=== PATIENT | female | born 1960 | race Caucasian/White ===

== ENCOUNTER 2018-02-01 19:24 | Observation (INO) ==
[2018-02-01 20:18] LABS: Basophils % 0.2 % (0.1-2.0); Eosinophils # 0.5 K/mm3 (0.0-0.4); Eosinophils % 3.6 % (0.1-12.0); Hematocrit 47.3 % (37.0-47.0); Lymphocytes % 15.3 K/mm3 (10-50); Mean Corpuscular HGB Conc 33.9 g/dL (31.8-35.4); Mean Corpuscular Hemoglobin 30.2 pg (27.0-31.2); Mean Corpuscular Volume 89.1 fl (81-99); Mean Platelet Volume 8.6 fl (7.4-10.4); Monocytes # 0.5 K/mm3 (0.1-1.0); Neutrophils # 10.2 K/mm3 (1.8-7.8); Neutrophils % 76.9 % (37.0-80.0); Platelet Count 297 K/mm3 (142-424); Red Cell Distribution Width 13.5 % (11.5-17.5); White Blood Count 13.3 K/mm3 (4.8-10.8)
[2018-02-01 20:19] LABS: Microscopic, Urine URINE MICROSCOPIC (MICROSCOPIC)
[2018-02-01 20:20] LABS: Appearance,Urine CLEAR (Clear); Bilirubin,Urine Negative (Negative); Blood, Urine TRACE-L (Negative); Color,Urine YELLOW (Yellow); Glucose,Urine (UA) Negative (Negative); Ketones,Urine Negative (Negative); Leukocyte Esterase,Urine TRACE (Negative); Protein,Urine TRACE (Negative); Specific Gravity, Urine >= 1.030 (1.005-1.030); Urobilinogen,Urine 0.2 EU/dl (0.2)
[2018-02-01 20:35] LABS: Bacteria,Urine 2+ /lpf
[2018-02-01 20:36] LABS: Mucus,Urine 1+ /lpf
[2018-02-01 20:37] LABS: Albumin Level 4.5 gm/dL (3.4-5.0); Anion Gap 18.7 mEq/L (5-15); Bilirubin,Total 0.7 mg/dL (0.2-1.0); Calcium 9.5 mg/dL (8.5-10.1); Globulin 4.5 gm/dl (1.3-3.2); Potassium 3.7 mmoL/L (3.5-5.1)
[2018-02-01 21:56] LABS: Amphetamine/Metha Screen,Urine Negative ng/mL (<1000); Barbiturates Screen,Urine Negative ng/mL (<200); Benzodiazepines Screen,Urine Negative ng/mL (<200); Cannabinoid Screen,Urine Negative ng/mL (<50); Cocaine Screen,Urine Negative ng/mL (<300); Methadone Screen,Urine Negative ng/mL (<300); Opiate Screen,Urine Negative ng/mL (<300); Phencyclidine Screen,Urine Negative ng/mL (<25)
--- NOTE | 2018-02-01 22:44 | Emergency Department Note ---
ED Disposition Clinical Impression: Enteritis Disposition: Admitted as Observation Condition on Discharge: Good Instructions: DI for Diarrhea and Traveler's Diarrhea -- Adult, DI for Diarrhea and Traveler's Diarrhea -- Child, DI for Nausea -- Adult, DI for Nausea -- Child - Critical Care Critical Care Time: No Attestation: On 02/01/18, the high probability of a clinically significant, sudden or life threatening deterioration of the following system(s) required my full and direct attention, intervention and personal management. The time I documented below is in addition to time spent performing reported procedures but includes the following listed in this critical care notation. Medical Decision Making - Medical Records Medical records reviewed: Yes: I reviewed the patient's medical records. - [place] Inquiry Pt receiving controlled substance: No Vital Signs: 02/01/18 19:46 02/01/18 21:10 Temperature 97.9 F Temperature Source Oral Pulse Rate [Brachial] 120 H 126 H Pulse Rate [Right Radial] 122 H Respiratory Rate 22 20 Blood Pressure [Right Arm] 148/85 150/99 Blood Pressure Mean [Right Arm] 106 116 Blood Pressure Source [Right Arm] Automatic Cuff Blood Pressure Position [Right Arm] Sitting Sitting 02 Sat by Pulse Oximetry 97 97 Oxygen Delivery Method Room Air - Lab Data Lab results reviewed: Yes: I reviewed the patient's lab results. Lab Results 02/01/18 20:00: WBC 13.3 H, RBC 5.30, Hgb 16.0, Hct 47.3 H, MCV 89.1, MCH 30.2, MCHC 33.9, RDW 13.5, Plt Count 297, MPV 8.6, Neut % (Auto) 76.9, Lymph % (Auto) 15.3, [place] % (Auto) 4.0, Eos % (Auto) 3.6, Baso % (Auto) 0.2, Neut # (Auto) 10.2 H, Lymph # (Auto) 2.0, [place] # (Auto) 0.5, Eos # (Auto) 0.5 H, Baso # (Auto ) 0.0 02/01/18 20:00: Sodium 139, Potassium 3.7, Chloride 106, Carbon Dioxide 18 L, Anion Gap 18.7 H, BUN 8, Creatinine 0.93, Estimated Creat Clear 99, Estimated GFR 63, Est GFR ( Amer) 76, Glucose 150 H, Calcium 9.5, Total Bilirubin 0.7, AST 64 H, ALT 75, Alkaline Phosphatase 117 H, Total Protein 9.0 H, Albumin 4.5, Globulin 4.5 H, Albumin/Globulin Ratio 1.0 L, Amylase 56, Lipase 138 02/01/18 20:00: Lactic Acid 1.4 02/01/18 20:04: Troponin I < 0.02 02/01/18 20:15: Urine Color Yellow, Urine Appearance Clear, Urine pH 6.0, Ur Specific [place] >= 1.030, Urine Protein Trace, Urine Glucose (UA) Negative, Urine Ketones Negative, Urine Blood Trace-l, Urine Nitrate Negative, Urine Bilirubin Negative, Urine Urobilinogen 0.2, Ur Leukocyte Esterase Trace, Urine RBC None, Urine WBC 5-10, Ur Squamous Epith Cells 5-10, Urine Bacteria 2+, Hyaline Casts 3-5, Coarse Granular Casts 10-20, Urine Mucus 1+ 02/01/18 20:15: Urine Opiates Screen Negative, Urine Methadone Screen Negative, Ur Barbituates Screen Negative, Ur Phencyclidine Scrn Negative, Ur Amphetamines Screen Negative, U Benzodiazepines Scrn Negative, Urine Cocaine Screen Negative , U Marijuana (THC) Screen Negative 02/01/18 21:10: POC Glucose 153 H Result diagrams: 02/01/18 20:00 02/01/18 20:00 Orders (Tests/Meds): ED MEDICATIONS Generic Name Dose Route Start Last Admin Trade Name Freq PRN Reason Stop Dose Admin Sodium Chloride 1,000 mls @ 999 mls/hr 02/01/18 22:45 02/01/18 22:42 Sod Chlor 0.9% 1000ml Bag IV 02/01/18 23:45 999 mls/hr .Q1H1M SHAILESH Administration Discontinued Medications Generic Name Dose Route Start Last Admin Trade Name Freq PRN Reason Stop Dose Admin Famotidine 20 mg 02/01/18 19:53 02/01/18 20:08 Pepcid 20mg/2ml Vial IV 02/01/18 19:54 20 mg ONCE ONE Administration Sodium Chloride 1,000 mls @ 999 mls/hr 02/01/18 20:00 02/01/18 20:08 Sod Chlor 0.9% 1000ml Bag IV 02/01/18 21:00 999 mls/hr .Q1H1M SHAILESH Administration Lorazepam 1 mg 02/01/18 21:23 02/01/18 21:25 Ativan 2mg/Ml Vial IV 02/01/18 21:24 1 mg ONCE ONE Administration Metoclopramide HCl 10 mg 02/01/18 19:53 02/01/18 20:08 Reglan 10mg/2ml Vial IVP 02/01/18 19:54 10 mg ONCE ONE Administration Ondansetron HCl 4 mg 02/01/18 19:53 02/01/18 20:08 Zofran 4mg/2ml Vial IV 02/01/18 19:54 4 mg ONCE ONE Administration ORDERS Category Date Time Status Diarrhea Panel, PCR Stat Lab 02/01/18 19:53 Ordered UA [Urinalysis and Microscopic] Stat Lab 02/01/18 21:17 Ordered Blood Culture Stat Micro 02/01/18 21:17 Ordered Urine Culture Stat Micro 02/01/18 20:15 Received 12-lead EKG Request [ECG Request by /Geri] Stat Y 02/01/18 21:09 Ordered - CT Data CT Scan: Abdomen, Pelvis Time Received: 22:[address] Reviewed: Yes: I have viewed the radiologist's interpretation Preliminary Findings: Abnormal (enteritis ) Nausea/Vomiting/Diarrhea HPI - General Chief complaint: Nausea/Vomiting/Diarrhea Stated complaint: vomiting and diarrhea Time Seen by Provider: 02/01/18 20:00 Mode of Arrival: Family Vehicle Source of Information: Patient, Relative, Medical Record Limitations: No Limitations Description of Symptoms (Recalled from ER Triage Doc. by RN): pt states she has had severe diarrhea and abd pain since one hour after she ate yesterday. pt states she ate pork chop and green beans from a restaurant. pt states that she started vomiting today right before she arrived to ed. - History of Present Illness HPI Narrative: pt with 1 day hx of vomiting and diarrhea w/o blood in stool complaint: nausea, vomiting, diarrhea, abdominal pain Onset (ago): day(s) Associated Abdominal Pain: Yes Location of pain: diffuse Severity: moderate Consistency: intermittent Context: possible food poisoning Associated symptoms: nausea/vomiting - Related Data Home Medications Medication Instructions Recorded Confirmed Atenolol [Atenolol 25mg Tab] 25 mg PO DAILY 02/01/18 02/01/18 Simvastatin 40 mg PO DAILY 02/01/18 02/01/18 raNITIdine HCl [Zantac] 150 mg PO DAILY 02/01/18 02/01/18 Allergies Allergy/AdvReac Type Severity Reaction Status Date / Time tolmetin [TOLMETIN] Allergy Unknown Verified 02/01/18 19:52 RABIES VACCINES Allergy Unknown Uncoded 06/28/17 15:01 [facility] History I have reviewed the patient's past medical history: Yes Medical History: Reports:: Cancer (cervical ca in the past) Amputation: No Fractures: No - Social History Smoking Status: Never smoker Alcohol Intake: never - Psychiatric History Expresses thoughts of harming self/others: None Suicide Plan Description: No Plan ROS Obtained: Yes All systems reviewed & no additional complaints - Constitutional Constitutional: Denies fever(s) - Eyes Eyes: Denies change in vision - ENT Ears, Nose, Mouth, and Throat: Denies sore throat - Cardiovascular Cardiovascular: Denies chest pain - Respiratory Respiratory: No cough - Gastrointestinal Gastrointestingal: Reports: abdominal pain, diarrhea, nausea, vomiting - Genitourinary Female Genitourinary: Denies hematuria - Musculoskeletal Musculoskeletal: Denies joint pain, Denies joint swelling - Integumentary/Breasts Skin/Breast: Denies rash - Neurologic Neurologic: Denies headache(s), Denies seizure-like activity Physical Exam - General General appearance: in no apparent distress - Head Head exam: normocephalic - Eye Eye exam: Present: PERRL, EOMI - ENT ENT exam: Present: mucous membranes dry - Neck Neck exam: Present: trachea midline - Respiratory Respiratory exam: Present: normal lung sounds bilaterally. Absent: respiratory distress - Cardiovascular Cardiovascular exam: Present: tachycardia, systolic murmur - Abdominal Exam Abdominal exam: Present: soft, tenderness. Absent: rebound Abdominal tenderness: Present: epigastrium, moderate - Extremities Exam Extremities exam: Absent: calf tenderness - Neurological Exam Neurological exam: Present: alert, oriented X3, CN II-XII intact - Psychiatric Psychiatric exam: Present: normal affect - Skin Skin exam: Absent: rash
--- NOTE | 2018-02-02 08:02 | Pharmacy Consult Notes ---
[facility] Pharmacy VTE Monitoring - Patient Demographics Admission date: 02/01/18 Report Date: 02/02/18 Time: 08:01 Allergies/Adverse Reactions: Patient Allergies tolmetin [TOLMETIN] Allergy (Unknown, Verified 02/02/18 07:22) Vomiting clavulanic acid [From Augmentin] Allergy (Verified 02/02/18 07:22) Vomiting rabies vaccine,purified chick-hai Allergy (Verified 02/02/18 07:22) Unknown allergy reaction Height: 1.63 m Weight: 89.018 kg Patient Problems: Current Active Problems Enteritis (Acute) - VTE Risk Labs: VTE Related Lab Results Hgb 16.0 g/dL (12.2-16.2) 02/01/18 20:00 Hct 47.3 % (37.0-47.0) H 02/01/18 20:00 Plt Count 297 K/mm3 (142-424) 02/01/18 20:00 BUN 8 mg/dL (7-18) 02/01/18 20:00 Creatinine 0.93 mg/dL (0.55-1.02) 02/01/18 20:00 Estimated Creat Clear 99 mL/min (0-300) 02/01/18 20:00 Was VTE Risk Assessment Performed: Yes VTE Score: 5 VTE Risk Level: Low Risk Clinical Trial Participant: No - Prophylaxis VTE Prophylaxis Ordered?: Yes Types of VTE Prophylaxis: TEDS Knee High
--- NOTE | 2018-02-02 08:22 | History & Physical Report ---
*Admission Date: 02/01/18 *Chief complaint: abdominal pain, nausea, vomiting, diarrhea *History of present illness: Ms. Hinkle is a 57-year-old female from [place], [place] who is here visiting her boyfriend. She states they went out to eat on Tuesday to and she had a pork chop and garlic potatoes. Almost immediately after eating, she began feeling sick. She began having diarrhea and nausea. This continued through yesterday and she vomited once. Her abdominal pain became severe, therefore she presented to the emergency room. She had a CT of the abdomen showing an enteritis. She was admitted for further evaluation and treatment. She has not had any further vomiting but continues with diarrhea and abdominal pain. [facility] History Medical History: Reports:: Cancer (cervical ca in the past), Hyperlipidemia, Hypertension, Migraine Denies:: Diabetes Mellitus Type 1, Diabetes Mellitus Type 2, MRSA Laterality Cases: Bilateral: Carpal Tunnel Release, Other Other Surgeries: Yes: Hysterectomy-Total Amputation: No Fractures: No - *Social History Educational Level: Completed College Smoking Status: Never smoker Alcohol Intake: never Occupational Status: disabled Housing: house Household Members: none - Psychiatric History Expresses thoughts of harming self/others: None Suicide Plan Description: No Plan *Family Hx:: Cancer, Diabetes, Heart Attack, Hypertension, Stroke Review of Systems - Constitutional Reports chills, Denies body ache(s), Denies fever(s) - Eyes Denies blurry vision, Denies double vision - ENT Denies nasal congestion, Denies sore throat - *Cardiovascular Denies chest pain, Denies shortness of breath - *Respiratory Denies cough, Denies shortness of breath - *Gastrointestinal Reports abdominal pain (diffuse), Reports loose stools, Reports vomiting - *Genitourinary Denies difficulty urinating, Denies painful urination - *Musculoskeletal Denies joint pain, Denies muscle weakness - *Neurologic Reports headache(s), Denies seizure-like activity, Denies dizziness Meds Home Medications Medication Instructions Recorded Confirmed Type Atenolol [Atenolol 25mg Tab] 25 mg PO DAILY 02/01/18 02/02/18 History Simvastatin 20 mg PO DAILY 02/01/18 02/02/18 History raNITIdine HCl [Zantac] 150 mg PO DAILY 02/01/18 02/02/18 History Amitriptyline HCl [Elavil 25mg 25 mg PO DAILY 02/02/18 02/02/18 History tablet] Allergies Allergy/AdvReac Type Severity Reaction Status Date / Time tolmetin [TOLMETIN] Allergy Unknown Vomiting Verified 02/02/18 07:22 clavulanic acid Allergy Vomiting Verified 02/02/18 07:22 [From Augmentin] rabies vaccine,purified Allergy Unknown Verified 02/02/18 07:22 chick-hai allergy reaction Exam Vital signs and Labs for Last 24 Hours: Temp Pulse Resp BP Pulse Ox 98.8 F 100 H 18 108/58 96 02/02/18 08:00 02/02/18 08:00 02/02/18 08:00 02/02/18 08:00 02/02/18 08:00 Laboratory Results - last 24 hr 02/01/18 20:00: WBC 13.3 H, RBC 5.30, Hgb 16.0, Hct 47.3 H, MCV 89.1, MCH 30.2, MCHC 33.9, RDW 13.5, Plt Count 297, MPV 8.6, Neut % (Auto) 76.9, Lymph % (Auto) 15.3, [place] % (Auto) 4.0, Eos % (Auto) 3.6, Baso % (Auto) 0.2, Neut # (Auto) 10.2 H, Lymph # (Auto) 2.0, [place] # (Auto) 0.5, Eos # (Auto) 0.5 H, Baso # (Auto ) 0.0 02/01/18 20:00: Sodium 139, Potassium 3.7, Chloride 106, Carbon Dioxide 18 L, Anion Gap 18.7 H, BUN 8, Creatinine 0.93, Estimated Creat Clear 99, Estimated GFR 63, Est GFR ( Amer) 76, Glucose 150 H, Calcium 9.5, Total Bilirubin 0.7, AST 64 H, ALT 75, Alkaline Phosphatase 117 H, Total Protein 9.0 H, Albumin 4.5, Globulin 4.5 H, Albumin/Globulin Ratio 1.0 L, Amylase 56, Lipase 138 02/01/18 20:00: Lactic Acid 1.4 02/01/18 20:04: Troponin I < 0.02 02/01/18 20:15: Urine Color Yellow, Urine Appearance Clear, Urine pH 6.0, Ur Specific [place] >= 1.030, Urine Protein Trace, Urine Glucose (UA) Negative, Urine Ketones Negative, Urine Blood Trace-l, Urine Nitrate Negative, Urine Bilirubin Negative, Urine Urobilinogen 0.2, Ur Leukocyte Esterase Trace, Urine RBC None, Urine WBC 5-10, Ur Squamous Epith Cells 5-10, Urine Bacteria 2+, Hyaline Casts 3-5, Coarse Granular Casts 10-20, Urine Mucus 1+ 02/01/18 20:15: Urine Opiates Screen Negative, Urine Methadone Screen Negative, Ur Barbituates Screen Negative, Ur Phencyclidine Scrn Negative, Ur Amphetamines Screen Negative, U Benzodiazepines Scrn Negative, Urine Cocaine Screen Negative , U Marijuana (THC) Screen Negative 02/01/18 21:10: POC Glucose 153 H 02/01/18 23:00: Stl Aeromonas (PCR) Not detected, Stl C. cayetanensis PCR Not detected, Stool Rotavirus (PCR) Not detected, Stl Adenov F 40/41 PCR Not detected, Stool Astrovirus (PCR) Not detected, Stool Campylobacter PCR Not detected, Stl C.difficile Tox PCR Not detected, Stool Cryptosporidium PCR Not detected, Stl E.coli Shiga Tox PCR Not detected, Stool E coli O157 PCR Not detected, Stl Enterotoxigenic E PCR Not detected, Stool EPEC (PCR) Not detected , Stool EAEC (PCR) Not detected, Stl E. histolytica PCR Not detected, Stool Giardia Lamblia PCR Not detected, Stool Salmonella PCR Not detected, Stool Sapovirus (PCR) Not detected, Stl P. shigelloides PCR Not detected, Stl Shigella /EIEC PCR Not detected, St Y.enterocolitica PCR Not detected, Stool Vibrio (PCR ) Not detected, Stl Vibrio cholerae PCR Not detected, Stl Norovirus GI/GII PCR Not detected I & O for Last 24 hours: Intake & Output 01/30/18 01/31/18 02/01/18 02/02/18 11:59 11:59 11:59 11:59 Intake Total 2484 / 2484 Balance 2484 / 2484 Weight 196 lb 4 oz Microbiology Reports for the Last 24 Hours: Microbiology 02/01/18 20:15 Urine,Clean Catch Urine Culture - Preliminary - Constitutional Comments: Does not appear to feel well - *Routine HEENT Exam Head: Present: normocephalic, atraumatic Eye: Present: EOMI, PERRL ENT: Present: mucous membranes dry - *Routine Neck Exam Present: supple, full ROM - *Routine Respiratory Exam Present: CTA bilaterally - *Routine Cardiovascular Exam Present: RRR - *Routine Abdominal Exam Present: soft, normoactive bowel sounds, tenderness (diffuse, worse in the periumbilical area) - *Routine Extremities Exam Absent: edema - *Routine Skin Exam Present: intact - *Routine Neurological Exam Present: alert, oriented X3 H&P: Result - Labs Labs: Short CBC 02/01/18 Range/Units 20:00 WBC 13.3 H (4.8-10.8) K/mm3 Hgb 16.0 (12.2-16.2) g/dL Hct 47.3 H (37.0-47.0) % Plt Count 297 (142-424) K/mm3 - Impressions Abdominal CT - Findings compatible with enteritis. Generous Liquid stool with air-fluid levels throughout the right and transverse colon compatible with enteritis, diarrhea. Slight increased fluid in small bowel with scattered mild to moderate air-fluid levels in small bowel reflecting the same. No significant wall thickening large nor small bowel. No free air no free fluid. Would also note Large amount of food distends the stomach as if the patient just ate a large meal. Assessment and Plan (1) Enteritis Current visit: Yes Status: Acute Category: Medical Code(s): K52.9 - Noninfective gastroenteritis and colitis, unspecified (2) Hypertension Current visit: Yes Status: Chronic Category: Medical Code(s): I10 - Essential (primary) hypertension (3) Hyperlipidemia Current visit: Yes Status: Chronic Category: Medical Code(s): E78.5 - Hyperlipidemia, unspecified (4) Migraines Current visit: Yes Status: Chronic Category: Medical Code(s): G43.909 - Migraine, unspecified, not intractable, without status migrainosus - Assessment and plan all Dx Assessment and Plan for all problems:: She has been started on antiemetics, pain medication, and IV fluids. We will continue these and will see if she can tolerate ice chips this morning. If so, she can try a clear liquid diet for lunch.
[2018-02-02 08:30] LABS: Basophils % 0.2 % (0.1-2.0); Eosinophils # 0.5 K/mm3 (0.0-0.4); Eosinophils % 6.5 % (0.1-12.0); Lymphocytes # 1.8 K/mm3 (0.7-4.5); Mean Corpuscular Hemoglobin 28.8 pg (27.0-31.2); Mean Corpuscular Volume 90.1 fl (81-99); Monocytes # 0.5 K/mm3 (0.1-1.0); Monocytes % 6.7 % (1.7-9.3); Neutrophils # 4.6 K/mm3 (1.8-7.8); Neutrophils % 62.6 % (37.0-80.0); Platelet Count 228 K/mm3 (142-424); Red Blood Count 4.64 M/mm3 (4.20-5.40); Red Cell Distribution Width 13.6 % (11.5-17.5)
[2018-02-02 08:35] LABS: Anion Gap 15.5 mEq/L (5-15); Potassium 3.5 mmoL/L (3.5-5.1)
[2018-02-02 08:38] LABS: Hematocrit 41.8 % (37.0-47.0); Hemoglobin 13.4 g/dL (12.2-16.2); White Blood Count 7.1 K/mm3 (4.8-10.8)
[2018-02-02 08:50] LABS: Calcium 8.1 mg/dL (8.5-10.1)
--- NOTE | 2018-02-03 08:25 | Progress Note ---
<Anabela Brumfield - Last Filed: 02/03/18 08:23> Internal Medicine - PN: Subj *Date: 02/03/18 *Time: 08:23 Interval history: Patient is feeling much better today. She is tolerating a diet, has had no further vomiting, and her diarrhea has resolved. Her abdominal pain has improved. She is anxious to go home. Exam Vital signs and Labs for Last 24 Hours: Temp Pulse Resp BP Pulse Ox 98.2 F 81 18 103/55 93 L 02/03/18 03:58 02/03/18 03:58 02/03/18 03:58 02/03/18 03:58 02/03/18 03:58 Laboratory Results - last 24 hr 02/01/18 20:15: Urine Color Yellow, Urine Appearance Clear, Urine pH 6.0, Ur Specific [place] >= 1.030, Urine Protein Trace, Urine Glucose (UA) Negative, Urine Ketones Negative, Urine Blood Trace-l, Urine Nitrate Negative, Urine Bilirubin Negative, Urine Urobilinogen 0.2, Ur Leukocyte Esterase Trace, Urine RBC None, Urine WBC 5-10, Ur Squamous Epith Cells 5-10, Urine Bacteria 2+, Hyaline Casts 3-5, Coarse Granular Casts 10-20, Urine Mucus 1+ 02/02/18 08:18: WBC 7.1 D, RBC 4.64, Hgb 13.4 D, Hct 41.8, MCV 90.1, MCH 28.8 , MCHC 32.0, RDW 13.6, Plt Count 228, MPV 8.0, Neut % (Auto) 62.6, Lymph % (Auto ) 24.0, [place] % (Auto) 6.7, Eos % (Auto) 6.5, Baso % (Auto) 0.2, Neut # (Auto) 4.6, Lymph # (Auto) 1.8, [place] # (Auto) 0.5, Eos # (Auto) 0.5 H, Baso # (Auto) 0.0 02/02/18 08:18: Sodium 144, Potassium 3.5, Chloride 112 H, Carbon Dioxide 20 L, Anion Gap 15.5 H, BUN 8, Creatinine 0.79, Estimated Creat Clear 113, Estimated GFR 76, Est GFR ( Amer) 91, Glucose 113 H D, Calcium 8.1 L D, Magnesium 1.7 I & O for Last 24 hours: Intake & Output 01/31/18 02/01/18 02/02/18 02/03/18 11:59 11:59 11:59 11:59 Intake Total 2484 / 2484 2978 / 2978 Balance 2484 / 2484 2978 / 2978 Weight 196 lb 4 oz Microbiology Reports for the Last 24 Hours: Microbiology 02/01/18 20:15 Urine,Clean Catch Urine Culture - Preliminary Gram Negative Rods - Constitutional no acute distress - *Routine Respiratory Exam Present: CTA bilaterally - *Routine Cardiovascular Exam Present: RRR - *Routine Abdominal Exam Present: soft, normoactive bowel sounds, tenderness (diffuse but improved) - *Routine Extremities Exam Absent: edema Assessment and Plan (1) Enteritis Current visit: Yes Status: Acute Category: Medical Code(s): K52.9 - Noninfective gastroenteritis and colitis, unspecified (2) Hypertension Current visit: Yes Status: Chronic Category: Medical Code(s): I10 - Essential (primary) hypertension (3) Hyperlipidemia Current visit: Yes Status: Chronic Category: Medical Code(s): E78.5 - Hyperlipidemia, unspecified (4) Migraines Current visit: Yes Status: Chronic Category: Medical Code(s): G43.909 - Migraine, unspecified, not intractable, without status migrainosus - Assessment and plan all Dx Assessment and Plan for all problems:: Possible discharge home today. <Corry Meraz - Last Filed: 02/03/18 11:23> Internal Medicine - PN: Subj *Date: 02/03/18 *Time: 11:22 Exam Vital signs and Labs for Last 24 Hours: Temp Pulse Resp BP Pulse Ox 98.5 F 63 16 109/57 97 02/03/18 08:00 02/03/18 08:00 02/03/18 08:00 02/03/18 08:00 02/03/18 08:00 Laboratory Results - last 24 hr 02/01/18 20:15: Urine Color Yellow, Urine Appearance Clear, Urine pH 6.0, Ur Specific [place] >= 1.030, Urine Protein Trace, Urine Glucose (UA) Negative, Urine Ketones Negative, Urine Blood Trace-l, Urine Nitrate Negative, Urine Bilirubin Negative, Urine Urobilinogen 0.2, Ur Leukocyte Esterase Trace, Urine RBC None, Urine WBC 5-10, Ur Squamous Epith Cells 5-10, Urine Bacteria 2+, Hyaline Casts 3-5, Coarse Granular Casts 10-20, Urine Mucus 1+ I & O for Last 24 hours: Intake & Output 01/31/18 02/01/18 02/02/18 02/03/18 11:59 11:59 11:59 11:59 Intake Total 2484 / 2484 3458 / 3458 Balance 2484 / 2484 3458 / 3458 Weight 196 lb 4 oz Microbiology Reports for the Last 24 Hours: Microbiology 02/01/18 20:15 Urine,Clean Catch Urine Culture - Preliminary Gram Negative Rods Assessment and Plan (1) Enteritis Current visit: Yes Status: Acute Category: Medical Code(s): K52.9 - Noninfective gastroenteritis and colitis, unspecified (2) Hypertension Current visit: Yes Status: Chronic Category: Medical Code(s): I10 - Essential (primary) hypertension (3) Hyperlipidemia Current visit: Yes Status: Chronic Category: Medical Code(s): E78.5 - Hyperlipidemia, unspecified (4) Migraines Current visit: Yes Status: Chronic Category: Medical Code(s): G43.909 - Migraine, unspecified, not intractable, without status migrainosus - Assessment and plan all Dx Assessment and Plan for all problems:: I agree with above with following: Upon being medically stable, patient will be discharged home today with some zofran on board.
--- NOTE | 2018-02-04 16:18 | Discharge Summary ---
General - General Admission date:: 02/01/18 Discharge date: 02/03/18 HPI HPI: Ms. Hinkle is a 57-year-old female from [place], [place] who is here visiting her boyfriend. She states they went out to eat on Tuesday to [place] [employer] and she had a pork chop and garlic potatoes. Almost immediately after eating, she began feeling sick. She began having diarrhea and nausea. This continued through yesterday and she vomited once. Her abdominal pain became severe, therefore she presented to the emergency room. She had a CT of the abdomen showing an enteritis. She was admitted for further evaluation and treatment. She has not had any further vomiting but continues with diarrhea and abdominal pain. Hospital Course Hospital Course: The patient's abdominal CT showed an enteritis. She was started on antiemetics , pain medication, and IV fluids. Her symptoms improved and her diet was advanced. Her urine cx was positive for E. Coli but there was only a 20-30,000 [place] count. She will need to f/u with her PCP and may need a repeat U/A and culture. Objective Vital signs: Temp Pulse Resp BP Pulse Ox 98.5 F 63 16 109/57 97 02/03/18 08:00 02/03/18 08:00 02/03/18 08:00 02/03/18 08:00 02/03/18 08:00 Narrative: - Constitutional Comments: Does not appear to feel well - *Routine HEENT Exam Head: Present: normocephalic, atraumatic Eye: Present: EOMI, PERRL ENT: Present: mucous membranes dry - *Routine Neck Exam Present: supple, full ROM - *Routine Respiratory Exam Present: CTA bilaterally - *Routine Cardiovascular Exam Present: RRR - *Routine Abdominal Exam Present: soft, normoactive bowel sounds, tenderness (diffuse, worse in the periumbilical area) - *Routine Extremities Exam Absent: edema - *Routine Skin Exam Present: intact - *Routine Neurological Exam Present: alert, oriented X3 Results Labs on day of discharge: Preliminary micro results at discharge 02/01/18 20:00 Blood Culture - Preliminary Blood NO GROWTH AFTER 48 HOURS 02/01/18 20:00 Blood Culture - Preliminary Blood NO GROWTH AFTER 48 HOURS DS: Diagnosis - Discharge Diagnosis (1) Enteritis Status: Acute (2) Hypertension Status: Chronic (3) Hyperlipidemia Status: Chronic (4) Migraines Status: Chronic Discharge Plan - Patient Discharge Instructions ACTIVITY: Continue current activity DIET: continue same diet Patient Instructions: DI for Viral Gastroenteritis -- Adult - Follow up Plan Unknown provider or service follow up:: 02/03/18 08:46 Patient to follow-up with her PCP at her hometown as she is leaving [facility] today. Disposition: Home, Self-Fpc Medications: Home Medications Medication Instructions Recorded Confirmed Type Atenolol [Atenolol 25mg Tab] 25 mg PO DAILY 02/01/18 02/02/18 History Simvastatin 20 mg PO DAILY 02/01/18 02/02/18 History raNITIdine HCl [Zantac] 150 mg PO DAILY 02/01/18 02/02/18 History Amitriptyline HCl [Elavil 25mg 25 mg PO DAILY 02/02/18 02/02/18 History tablet] Prescriptions/Medication Reconciliation: New Ondansetron HCl [Zofran 4mg Tab] 4 mg PO BID #21 tab Continue Atenolol [Atenolol 25mg Tab] 25 mg PO DAILY raNITIdine HCl [Zantac] 150 mg PO DAILY Simvastatin 20 mg PO DAILY Amitriptyline HCl [Elavil 25mg tablet] 25 mg PO DAILY
== END 2018-02-03 10:45 | disposition home or self-care (01) ==
LOC: 2ND 19:24 → ER 19:24 → 2ND 23:22
PROVIDERS: ADMIT Emergency Medicine; ATTEND Emergency Medicine